=== PATIENT | female | born 1955 | race Caucasian/White ===

== ENCOUNTER 2016-10-16 11:11 | Inpatient (IN) | payer MEDICAID ==
[~2016-10-16] VITALS: Ht 154.9 cm; Wt 62.6 kg
[2016-10-16] MEDS ORDERED: IV SET PRIMARY 1 EA INFUS.SET MC ONE (12:21)
[2016-10-16] MEDS ORDERED: ONDANSETRON HCL/PF 4 MG/2 ML VIAL ONE (12:21)
[2016-10-16] MEDS ORDERED: IV NS 0.9% 1,000 ML ONE (12:21)
[2016-10-16] MEDS ORDERED: IV NS 0.9% 1,000 ML BAG IV ONE (12:30)
[2016-10-16] MEDS ORDERED: ONDANSETRON HCL/PF 4 MG/2 ML VIAL IVP ONE (12:30)
[2016-10-16 12:43] LABS: BASOPHILS % (AUTO) 0.7 % (0.0-2.0); DIFF TOTAL % 100 %; EOSINOPHILS % (AUTO) 0.8 % (0.0-6.0); HEMATOCRIT 39 % (33-45); HEMOGLOBIN 12.9 g/dL (11.5-14.8); LYMPHOCYTES # (AUTO) 1.2 /CMM (0.8-4.8); LYMPHOCYTES % (AUTO) 20.9 % (20.0-44.0); MEAN CORPUSCULAR HEMOGLOBIN 30 PG (26.0-33.0); MEAN CORPUSCULAR HGB CONC 33 g/dl (31.0-36.0); MEAN CORPUSCULAR VOLUME 90 fL (82-100); MONOCYTES # (AUTO) 0.4 /CMM (0.1-1.30); MONOCYTES % (AUTO) 6.6 % (2.0-12.0); NEUTROPHILS # (AUTO) 4.2 /CMM (1.8-8.9); PLATELET COUNT (AUTO) 237 /CMM (150-450); RED BLOOD CELL COUNT(AUTO) 4.29 MIL/uL (4.0-5.2); WHITE BLOOD COUNT (AUTO) 5.8 K/uL (4.3-11.0)
[2016-10-16 12:53] LABS: ANION GAP 9 (5-14); CALCIUM, SERUM 9.5 mg/dL (8.5-10.1); CARBON DIOXIDE 33 mmol/L (21-32); CHLORIDE 102 mmol/L (98-107); CREATININE 0.4 mg/dL (0.6-1.3); GFR 163 mL/min (>60); GLUCOSE 104 mg/dL (74-106); POTASSIUM 4.2 mmol/L (3.5-5.1); SODIUM SERUM 139 mmol/L (136-145); UREA NITROGEN, BLOOD 9 mg/dL (7-18)
[2016-10-16 12:55] LABS: INR 0.99 (0.87-1.13); PROTHROMBIN TIME 10.4 SECS (9.5-12.7)
[2016-10-16 12:59] LABS: ALANINE AMINOTRANSFERASE 30 U/L (12-78); ALBUMIN 3.8 g/dL (3.4-5.0); ASPARTATE AMINOTRANSFERASE 18 U/L (15-37); BILIRUBIN,DIRECT 0.1 mg/dL (0.0-0.2); BILIRUBIN,TOTAL 0.6 mg/dL (0.2-1.0); INDIRECT BILIRUBIN 0.5 mg/dL (0.0-1.1); TOTAL PROTEIN, SERUM 7.6 g/dL (6.4-8.2)
[2016-10-16 13:01] LABS: TROPONIN I < 0.017 ng/mL (0.00-0.056)
[2016-10-16] MEDS ORDERED: VENL75TA74 PO (13:30)
[2016-10-16] MEDS ORDERED: ATEN50TA PO (13:30)
[2016-10-16] MEDS ORDERED: ASPI81TA2 PO (13:30)
[2016-10-16] MEDS ORDERED: SIMV20TA6 PO (13:30)
[2016-10-16] MEDS ORDERED: GEMF600T3 PO (13:31)
[2016-10-16] MEDS ORDERED: GABA-532 PO (13:31)
[2016-10-16] MEDS ORDERED: MELO-270 PO (13:31)
[2016-10-16] MEDS ORDERED: LOSA50TA21 PO (13:31)
[2016-10-16] MEDS ORDERED: METH5TAB6 PO (13:31)
[2016-10-16] MEDS ORDERED: AMLO10TA2 PO (13:31)
[2016-10-16] MEDS ORDERED: METF500T4 PO (13:31)
[2016-10-16] MEDS ORDERED: CYAN250010 PO (13:31)
[2016-10-16] MEDS ORDERED: CHOL500052 PO (13:31)
[2016-10-16] MEDS: ATENOLOL 50 MG TABLET PO SCH (16:00)
[2016-10-16] MEDS: AMLODIPINE BESYLATE 10 MG TABLET PO SCH (16:00)
[2016-10-16] MEDS: LOSARTAN POTASSIUM 50 MG TABLET PO SCH (16:00)
[2016-10-16] MEDS: METFORMIN 500 MG TABLET PO SCH (16:00)
[2016-10-16 16:55] VITALS: BP 143/88
[2016-10-16 17:00] VITALS: BP 143/88
[2016-10-16] MEDS: METHIMAZOLE (5MG) 5 MG TABLET PO SCH (17:00)
[2016-10-16] MEDS ORDERED: GADOVERSETAMIDE 5 MMOL/10 ML VIAL IJ ONE (17:08)
[2016-10-16] MEDS ORDERED: GADOVERSETAMIDE 2.5 MMOL/5 ML VIAL IJ ONE (17:08)
[2016-10-16] MEDS ORDERED: INSULIN REGULAR, HUMAN 100 UNIT/ML 3 ML VIAL SQ PRN (17:30)
[2016-10-16] MEDS ORDERED: *INSULIN REGULAR(HUMULIN R)HUM 100 UNIT/ML VIAL SQ PRN (17:30)
[2016-10-16] MEDS ORDERED: DEXTROSE 50%-WATER 50 ML DISP.SYRIN IV PRN (17:30)
[2016-10-16] MEDS ORDERED: ZOLPIDEM TARTRATE 5 MG TABLET PO PRN (17:30)
[2016-10-16] MEDS ORDERED: HYDROCODONE/APAP 5/325MG 1 EACH TABLET PO PRN (17:30)
[2016-10-16] MEDS ORDERED: ACETAMINOPHEN 650 MG/20.3 ML UDC PO PRN (17:30)
[2016-10-16] MEDS: GABAPENTIN 100 MG CAPSULE PO SCH (17:32)
[2016-10-16] MEDS: VENLAFAXINE XR 75 MG CAP.SR.24H PO SCH (17:32)
[2016-10-16] MEDS: ASPIRIN 81 MG TAB.CHEW PO SCH (17:32)
[2016-10-16] MEDS: MELOXICAM 7.5 MG TABLET PO SCH (17:32)
[2016-10-16] MEDS ORDERED: SIMVASTATIN 20 MG TABLET PO SCH (18:00)
[2016-10-16 20:00] VITALS: BP 118/74
[2016-10-16] MEDS: BLOOD SUGAR DIAGNOSTIC 1 EACH STRIP VI SCH (21:18)
[2016-10-17] VITALS: BP 115/68
[2016-10-17 04:00] VITALS: BP 118/71
[2016-10-17] MEDS: BLOOD SUGAR DIAGNOSTIC 1 EACH STRIP VI SCH (06:20)
[2016-10-17 06:33] LABS: BASOPHILS % (AUTO) 0.6 % (0.0-2.0); DIFF TOTAL % 100 %; EOSINOPHILS # (AUTO) 0.1 /CMM (0.0-0.7); EOSINOPHILS % (AUTO) 1.3 % (0.0-6.0); HEMATOCRIT 37 % (33-45); HEMOGLOBIN 12.5 g/dL (11.5-14.8); LYMPHOCYTES # (AUTO) 1.5 /CMM (0.8-4.8); LYMPHOCYTES % (AUTO) 35.4 % (20.0-44.0); MEAN CORPUSCULAR HEMOGLOBIN 31 PG (26.0-33.0); MEAN CORPUSCULAR HGB CONC 34 g/dl (31.0-36.0); MEAN CORPUSCULAR VOLUME 91 fL (82-100); MONOCYTES # (AUTO) 0.4 /CMM (0.1-1.30); NEUTROPHILS # (AUTO) 2.3 /CMM (1.8-8.9); NEUTROPHILS % (AUTO) 53.7 % (43.0-81.0); PLATELET COUNT (AUTO) 220 /CMM (150-450); RED BLOOD CELL COUNT(AUTO) 4.05 MIL/uL (4.0-5.2); WHITE BLOOD COUNT (AUTO) 4.3 K/uL (4.3-11.0)
[2016-10-17 07:08] LABS: CREATININE 0.4 mg/dL (0.6-1.3); POTASSIUM 3.8 mmol/L (3.5-5.1)
[2016-10-17 08:00] VITALS: BP 136/77
[2016-10-17] MEDS ORDERED: METH5POW5 MC (08:35)
[2016-10-17 09:00] VITALS: BP 136/77
[2016-10-17] MEDS: METFORMIN 500 MG TABLET PO SCH (09:00)
[2016-10-17] MEDS: LOSARTAN POTASSIUM 50 MG TABLET PO SCH (09:00)
[2016-10-17] MEDS ORDERED: CYANOCOBALAMIN 500 MCG TABLET PO SCH (09:00)
[2016-10-17] MEDS: ASPIRIN 81 MG TAB.CHEW PO SCH (09:12)
[2016-10-17] MEDS: VENLAFAXINE XR 75 MG CAP.SR.24H PO SCH (09:15)
[2016-10-17] MEDS: MELOXICAM 7.5 MG TABLET PO SCH (09:15)
[2016-10-17] MEDS: GABAPENTIN 100 MG CAPSULE PO SCH (09:15)
[2016-10-17] MEDS: AMLODIPINE BESYLATE 10 MG TABLET PO SCH (09:16)
[2016-10-17] MEDS: METHIMAZOLE (5MG) 5 MG TABLET PO SCH (09:16)
[2016-10-17 09:17] VITALS: BP 136/77
[2016-10-17] MEDS: ATENOLOL 50 MG TABLET PO SCH (09:17)
[2016-10-18] MEDS ORDERED: ERGOCALCIFEROL (VITAMIN D 2) 50,000 UNIT CAPSULE PO SCH (09:00)
== END 2016-10-17 11:30 | disposition home or self-care (01) | DRG 42 ==
LOC: ER 11:20 → TELE1 15:35 → TELE 15:49 → MED 10-17 10:54
PROVIDERS: ADMIT Internal Medicine; ATTEND Internal Medicine
DX: G20 Parkinson's disease (principal); I11.9 Hypertensive heart disease without heart failure; R53.1 Weakness; F32.9 Major depressive disorder, single episode, unspecified; E78.5 Hyperlipidemia, unspecified; E11.9 Type 2 diabetes mellitus without complications; Z86.73 Personal history of transient ischemic attack (TIA), and cerebral infarction without residual deficits; E05.90 Thyrotoxicosis, unspecified without thyrotoxic crisis or storm; S93.402A Sprain of unspecified ligament of left ankle, initial encounter; Z91.81 History of falling; R42 Dizziness and giddiness; E03.9 Hypothyroidism, unspecified; E78.00 Pure hypercholesterolemia, unspecified; W19.XXXA Unspecified fall, initial encounter; Y92.9 Unspecified place or not applicable
CPT/HCPCS: 36415; 70450-TC; 70553-TC; 71010-TC; 73610-TC; 73630-TC; 80048-TC; 80076-TC; 82962-TC; 83690-TC; 84443-TC; 84484-TC; 85025-TC; 85730-TC; 87081-TC; 93307-TC; A9579; J1815; J2405; J7030